=== PATIENT | male | born 1950 | race Caucasian/White ===

== ENCOUNTER 2016-08-15 22:06 | Emergency (ER) ==
[2016-08-15] MEDS ORDERED: ASPIRIN CHEWABLE PO STA (22:08)
[2016-08-15] MEDS ORDERED: SODIUM CHLORIDE 1,000 ML IV STA (22:08)
[2016-08-15] MEDS ORDERED: NITROSTAT SL STA (22:08)
[2016-08-15] MEDS ORDERED: ZOFRAN 4 MG/2 ML IVP STA (22:09)
[2016-08-15] MEDS ORDERED: MORPHINE 2 MG/ML SYRINGE IVP STA (22:09)
--- NOTE | 2016-08-15 22:14 | ED.PDOC ---
General ED Provider: Dr. MIMA RINCON-ER Chief Complaint: Chest Pain Stated Complaint: my chest has been hurting Time Seen by Physician: 22:12 Mode of Arrival: Walk-In Information Source: Patient, Family Primary Care Provider: MIMA RINCON Nursing and Triage Documentation Reviewed and Agree: Yes Cardiovascular Complaint Exam - Chest Pain Complaint/Exam Onset: Gradual Duration: 2 hrs Symptoms Are: Still present Initial Severity: Mild Current Severity: Moderate Location: Reports: Diffuse, Midsternal Pain Radiates: Reports: Back Character: Reports: Dull, Aching Aggravating: Reports: None Alleviating: Reports: Nitro Associated Signs and Symptoms: Reports: Diaphoresis, Nausea. Denies: Vomiting, Fever, Palpitations, Cough, Hemoptysis, Back pain, Abdominal pain, Dizziness, Short of air, Calf pain, Calf swelling History of Healthcare-Acquired Pneumonia: Reports: No TAD Risk Factors: Reports: None Pulmonary Embolism Risk Factors: Reports: None Prior Care for this Complaint: No Recent Stress Test: No Recent Echo/LV Function: No JVD Present: No Subcutaneous Emphysema Present: No Diminshed Breath Sounds: No Reproducible Chest Wall Pain: No Bilateral Pulses Present: Yes Unequal Pulses Noted: No Quality Indicators For Acute MS or Cardiac Chest Pain: EKG in 10min. Review of Systems - Review Of Systems Constitutional: Reports: No symptoms Eyes: Reports: No symptoms Ears, Nose, Mouth, Throat: Reports: No symptoms Respiratory: Reports: Short of air Cardiac: Reports: Chest pain GI: Reports: No symptoms : Reports: No symptoms Musculoskeletal: Reports: No symptoms Skin: Reports: No symptoms Neurological: Reports: No symptoms Endocrine: Reports: No symptoms Hematologic/Lymphatic: Reports: No symptoms All Other Systems: Reviewed and Negative Past Medical History - Past Medical History Endocrine: Reports: DM 2 Cardiovascular: Reports: CAD, MS, A-Fib Respiratory: Reports: None Hematological: Reports: None Gastrointestinal: Reports: None Genitourinary: Reports: None Neuro/Psych: Reports: None Musculoskeletal: Reports: None Cancer: Reports: None - Surgical History General Surgical History: Reports: Unknown - Family History Family History: Reports: Unknown - Social History Lives: With family Physical Exam - Physical Exam Appearance: Well-appearing, No pain distress, Well-nourished Pain Distress: Moderate Eyes: PAMELA, EOMI, Conjunctiva clear ENT: Ears normal, Nose normal, Oropharynx normal Neck: Supple Respiratory: Airway patent, Breath sounds clear, Breath sounds equal, Respirations nonlabored Cardiovascular: RRR, Pulses normal, No rub, No murmur GI/: Soft, Nontender, No masses, Bowel sounds normal, No Organomegaly Musculoskeletal: Normal strength, ROM intact, No edema, No calf tenderness Skin: Warm, Dry, Normal color Neurological: Sensation intact Psychiatric: Affect appropriate, Mood appropriate Interpretation - Radiology Interpretation Radiology Interpretation By: ED Physician Radiology Results: Negative Exam Interpreted: Portable CXR - EKG Interpretation Time of EKG #1: 22:25 Rate: Ever Rhythm: Sinus Ectopy: None [place]: NL ST Segment: Normal Re-Evaluation - Re-Evaluation Time of Re-Evaluation: 22:25 Status: Improved Vital Signs Stable: Yes Pain Level: 2 Appearance: NAD Lungs: Clear Skin: Warm and Dry Neuro: Alert and Oriented X3 CV: RRR Physician Notification - Case Discussed Physician Notified: dr reeves--[facility] [place] [facility] Time of Notification: 22:25 Critical Care Note - Critical Care Note Total Time (mins): 10 Course - Course Hematology/Chemistry: 08/15/16 22:15 Orders, Labs, Meds: Lab Review 08/15/16 22:15 WBC 15.41 H RBC 4.93 Hgb 15.0 Hct 44.6 MCV 90.5 MCH 30.4 MCHC 33.6 RDW Coeff of Hattie 14.6 Plt Count 249 Immature Gran % (Auto) 1.0 Neut % (Auto) 79.1 Lymph % (Auto) 10.0 [place] % (Auto) 7.1 Eos % (Auto) 2.3 Baso % (Auto) 0.5 Immature Gran # (Auto) 0.2 Neut # 12.2 H Lymph # 1.5 [place] # 1.1 Eos # 0.4 Baso # 0.1 ESR Pending Orders Category Date Time Status EKG-(ED ONLY) Stat CARDIO 08/15/16 22:07 Completed Setter Helper [ED SHIPS EQUIPMENT ENGINEER APPLIED] .ONCE EMERGENCY 08/15/16 22:08 Active IV [ED IV/MEDIPORT/POWERPORT] .ONCE EMERGENCY 08/15/16 22:08 Active OXYGEN [ED APPLY O2] .ONCE EMERGENCY 08/15/16 22:09 Active AMYLASE Stat LAB 08/15/16 22:15 Received CBC W/ AUTO DIFF Stat LAB 08/15/16 22:15 Results COMPREHENSIVE METABOLIC PANEL Stat LAB 08/15/16 22:15 Received CREATINE KINASE Stat LAB 08/15/16 22:15 Received D-DIMER Stat LAB 08/15/16 22:15 Received ESR Stat LAB 08/15/16 22:15 Results LIPASE Stat LAB 08/15/16 22:15 Received TROPONIN I Stat LAB 08/15/16 22:15 Received 0.9 % Sodium Chloride [Saline Flush] MEDS 08/15/16 22:08 Ordered 1 syr IVF PRN PRN Aspirin [Aspirin Chewable] MEDS 08/15/16 22:08 Discontinued 324 mg PO ONCE STA Morphine Sulfate [Morphine 2 mg/ml Syringe] MEDS 08/15/16 22:09 Discontinued 2 mg IVP ONCE STA Nitroglycerin [Nitrostat] MEDS 08/15/16 22:08 Discontinued 0.4 mg SL ONCE STA Ondansetron HCl/Pf [Zofran 4 mg/2 ml] MEDS 08/15/16 22:09 Discontinued 4 mg IVP ONCE STA Sodium Chloride 0.9% [Sodium Chloride] 1,000 ml MEDS 08/15/16 22:08 Active IV 100 mls/hr CXR [CHEST, 1V AP ONLY] Stat RADS 08/15/16 22:07 Taken Medications Generic Name Dose Route Start Last Admin Trade Name Freq PRN Reason Stop Dose Admin Sodium Chloride 1,000 mls @ 100 mls/hr 08/15/16 22:08 Sodium Chloride IV 08/16/16 08:07 .Q10H STA Sodium Chloride 1 syr 08/15/16 22:08 Saline Flush IVF PRN PRN To flush IV Discontinued Medications Generic Name Dose Route Start Last Admin Trade Name Freq PRN Reason Stop Dose Admin Aspirin 324 mg 08/15/16 22:08 Aspirin Chewable PO 08/15/16 22:09 ONCE STA Morphine Sulfate 2 mg 08/15/16 22:09 Morphine 2 Mg/Ml Syringe IVP 08/15/16 22:10 ONCE STA Nitroglycerin 0.4 mg 08/15/16 22:08 Nitrostat SL 08/15/16 22:09 ONCE STA Ondansetron HCl 4 mg 08/15/16 22:09 Zofran 4 Mg/2 Ml IVP 08/15/16 22:10 ONCE STA Vital Signs: Temp Pulse Resp BP Pulse Ox 08/15/16 22:08 98.1 F 61 20 154/81 H 95 ISIDRA Risk Score ISIDRA Risk Score: Risk Score Odds of by 30D 0 0.1 (0.1-0.2) 1 0.3 (0.2-0.3) 2 0.4 (0.3-0.5) 3 0.7 (0.6-0.9) 4 1.2 (1.0-1.5) 5 2.2 (1.9-2.6) 6 3.0 (2.5-3.6) 7 4.8 (3.8-6.1) Departure - Departure Time of Disposition: 22:25 Disposition: TSF SHORT-TRM HOSP Discharge Problem: Chest pain Instructions: Angina (ED) Condition: Good Pt referred to PMD for follow-up: Yes Allergies/Adverse Reactions: Allergies levofloxacin [From Levaquin] Allergy (Unverified 12/21/15 12:02) codien Allergy (Uncoded 12/21/15 12:02) Home Medications: Ambulatory Orders Amoxicillin 875 mg PO BID 5 Days 12/21/15 Aspirin/Caffeine [Mandi Aspirin Powder Pouches] 1 each PO DAILY 12/21/15 Atrovastatin 10 DAILY 12/21/15 Carvedilol 25 mg PO 2 daily 12/21/15 Digoxin 0.25 mg PO DAILY 12/21/15 Fluticasone Propionate [Flonase Allergy Relief] 9.9 ml NS 2 x daily 12/21/15 Hydralazine HCl 10 mg PO 2, 3x daily 12/21/15 Lisinopril 20 mg PO 2 daily 12/21/15 Metformin HCl 1,000 mg PO 2 daily 12/21/15 [place] 600 5 pills daily 12/21/15 One A Day Vitamin DAILY 12/21/15 Oxycodone HCl/Acetaminophen [Oxycodon-Acetaminophen 2.5-325] 1 each PO 3 daily PRN 12/21/15 Transfer Form Completed: Yes Disposition Discussed With: Patient, Family
[2016-08-15 22:22] LABS: BASOPHILS # (AUTO) 0.1 K/uL (0-0.2); BASOPHILS % (AUTO) 0.5 % (0.0-3.0); EOSINOPHILS # (AUTO) 0.4 K/ul (0.0-0.7); EOSINOPHILS % (AUTO) 2.3 % (0.0-7.0); HEMATOCRIT 44.6 % (42.0-52.0); LYMPHOCYTES # (AUTO) 1.5 K/uL (0.60-3.4); MEAN CORPUSCULAR HEMOGLOBIN 30.4 pg (27.0-31.0); MEAN CORPUSCULAR HGB CONC 33.6 (31.8-35.4); MEAN CORPUSCULAR VOLUME 90.5 fl (80.0-94.0); MONOCYTES # (AUTO) 1.1 K/uL (0.4-2.0); MONOCYTES % (AUTO) 7.1 (0-10); NEUTROPHILS # (AUTO) 12.2 K/ul (2.0-6.9); NEUTROPHILS % (AUTO) 79.1; PLATELET COUNT 249 10^3/uL (140-440); RED BLOOD COUNT 4.93 10^6/ul (4.70-6.10); WHITE BLOOD COUNT 15.41 K/ul (4.2-10.2)
[2016-08-15 22:24] VITALS: BP 154/81; TEMP 98.1; BMI 30.2
[2016-08-15 23:00] LABS: ALBUMIN 3.6 g/dL (3.4-5.0); ALBUMIN/GLOBULIN RATIO 0.92; ANION GAP 17.3; BILIRUBIN,TOTAL 0.59 mg/dL (0.00-1.20); BUN/CREATININE RATIO 11.96; CALCIUM 9.9 mg/dL (8.2-10.2); CREATININE 1.17 mg/dL (0.60-1.10); POTASSIUM 4.3 mmol/L (3.5-5.1); TOTAL PROTEIN 7.5 g/dL (5.8-8.1); TROPONIN I 0.032 ng/ml (0.0000-0.4000)
[2016-08-15 23:02] LABS: CREATINE KINASE MB 1.4 ng/ml (0.0-3.6)
[2016-08-15 23:04] LABS: ERYTHROCYTE SEDIMENTATION RATE 26 mm/hr (0-15); ESR INTERNAL QC INTERNAL QC VALID
--- NOTE | 2016-08-16 07:49 | DI ---
EXAM: CHEST FRONTAL VIEW HISTORY: Chest pain. COMPARISON: None FINDINGS: Heart size and mediastinum within normal limits. Mild ectasia of the aorta. No acute i nfiltrates are seen. There is no consolidation, visible pleural fluid or pneumothorax. Bones reveal no acute fracture. IMPRESSION: No acute cardiopulmonary process.
== END 2016-08-15 22:55 | disposition short-term general hospital (02) ==
LOC: ED 22:06
DX: R07.9 Chest pain, unspecified (principal); R06.02 Shortness of breath; I25.10 Atherosclerotic heart disease of native coronary artery without angina pectoris; I25.2 Old myocardial infarction; E11.9 Type 2 diabetes mellitus without complications; Z79.899 Other long term (current) drug therapy
CPT/HCPCS: 36415; 80053; 82150; 82550; 82553; 83690; 84484; 85025; 85379; 85651; 93005; 93010; 96360; 96361; 96374; 96375; 99285

== ENCOUNTER 2016-08-15 22:53 | Outpatient (CLI) ==
[2016-08-15 22:24] VITALS: BMI 30.2
== END 2016-08-15 22:54 ==
LOC: AMBL 22:53
PROVIDERS: ATTEND Family Medicine
DX: R07.9 Chest pain, unspecified (principal); R00.1 Bradycardia, unspecified

== ENCOUNTER 2017-10-16 10:48 | Outpatient (RCR) ==
[2017-10-16 11:29] VITALS: TEMP 98.1; BMI 32.4
[2017-10-21 11:51] VITALS: BP 130/58
== END 2017-10-21 23:59 ==
LOC: CAR.REHAB 10:48
PROVIDERS: ATTEND Thoracic Surgery (Cardiothoracic Vascular Surgery)
DX: I25.810 Atherosclerosis of coronary artery bypass graft(s) without angina pectoris (principal); I48.0 Paroxysmal atrial fibrillation
CPT/HCPCS: 93798

== ENCOUNTER 2017-10-22 07:33 | Outpatient (RCR) ==
[2017-11-20 11:49] VITALS: BP 138/56
== END 2017-11-21 23:59 ==
LOC: CAR.REHAB 07:33
PROVIDERS: ATTEND Thoracic Surgery (Cardiothoracic Vascular Surgery)
DX: I25.10 Atherosclerotic heart disease of native coronary artery without angina pectoris (principal); I48.0 Paroxysmal atrial fibrillation
CPT/HCPCS: 93798

== ENCOUNTER 2017-11-22 07:32 | Outpatient (RCR) ==
[2017-12-20 12:03] VITALS: BP 128/56
== END 2017-12-21 23:59 ==
LOC: CAR.REHAB 07:32
PROVIDERS: ATTEND Internal Medicine
DX: I25.10 Atherosclerotic heart disease of native coronary artery without angina pectoris (principal); I48.0 Paroxysmal atrial fibrillation
CPT/HCPCS: 93798

== ENCOUNTER 2017-12-23 07:14 | Outpatient (RCR) ==
[2018-01-20 12:00] VITALS: BP 130/58
== END 2018-01-20 14:02 | disposition home or self-care (01) ==
LOC: CAR.REHAB 07:14
PROVIDERS: ATTEND Internal Medicine
DX: I25.10 Atherosclerotic heart disease of native coronary artery without angina pectoris (principal); I48.0 Paroxysmal atrial fibrillation; Z95.1 Presence of aortocoronary bypass graft
CPT/HCPCS: 93798

== ENCOUNTER 2018-02-03 08:55 | Outpatient (CLI) | END 2018-02-03 08:56 | disposition home or self-care (01) | LOC: LAB 08:55 | PROVIDERS: ATTEND Family Medicine | DX: D69.6 Thrombocytopenia, unspecified (principal) | CPT/HCPCS: 36415; 85025 ==

== ENCOUNTER 2018-04-13 06:40 | Emergency (ER) | payer OTHER ==
[2018-04-13 06:47] VITALS: BP 109/72; TEMP 98.2; BMI 34.7
--- NOTE | 2018-04-13 07:40 | ED.PDOC ---
General ED Provider: Dr. MIMA MARTIN Chief Complaint: Foot Pain/Injury Stated Complaint: Pain in Rt foot-1st Toe. Onset ; Believes may have stepped on a stone. Pain progressively worsened and has become inflamed, reddened and swollen extending along distal inner foot. Time Seen by Physician: 07:18 Mode of Arrival: Walk-In Information Source: Patient Exam Limitations: No limitations Primary Care Provider: MIMA RINCON Referred to ED by: PCP Nursing and Triage Documentation Reviewed and Agree: Yes Does patient meet sepsis criteria?: No System Inflammatory Response Syndrome: Not Applicable Sepsis Protocol: For patient's 13 years and over: Temp is 96.8 and below OR 101 and greater Pulse >90 BPM Resp >20/minute Acutely Altered Mental Status Are patient's symptoms suggestive of a new infection, such as: -Pneumonia -Skin, Soft Tissue -Endocarditis -UTI -Bone, Joint Infection -Implantable Device -Acute Abdominal Infection -Wound Infection -Meningitis -Blood Stream Catheter Infection -Unknown Musculoskeletal Complaint Exam - Ankle/Foot Complaint/Exam Location of Injury: Reports: Left, Toe #1 Mechanism of Injury: Reports: No known trauma (not sure if stepped on a stone) Onset/Duration: 3-4 days Symptoms Are: Reports: Still present Onset of Pain: Reports: Prior to arrival Initial Severity: Moderate Current Severity: Moderate Location: Reports: Discrete Character: Reports: Aching, Throbbing Alleviating: Reports: None Aggravating: Reports: Movement, Weight bearing Able to Bear Weight: Yes Associated Signs and Symptoms: Reports: Swelling, Redness Related History: Denies: Similar episode Gout Risk Factors: Reports: >40 years old, Male, Diabetes, HTN, Renal Disease, Hyperlipidemia, Obesity Related Surgical History: Reports: None Lower Extremity Findings: Present: Swelling, Erythema, Warmth, Limited range of motion (RT 1st MTP joint) Tenderness: Present: Metatarsals Limited Range of Motion: Present: Dorsiflexion, Plantarflexion Differential Diagnosis: Gout, Strain Review of Systems - Review Of Systems Constitutional: Reports: No symptoms Eyes: Reports: No symptoms Ears, Nose, Mouth, Throat: Reports: No symptoms Respiratory: Reports: No symptoms Cardiac: Reports: No symptoms GI: Reports: No symptoms : Reports: No symptoms Musculoskeletal: Reports: No symptoms, Joint pain, Joint swelling Skin: Reports: No symptoms Neurological: Reports: No symptoms Endocrine: Reports: No symptoms Hematologic/Lymphatic: Reports: No symptoms All Other Systems: Reviewed and Negative Past Medical History - Past Medical History Previously Healthy: No Endocrine: Reports: DM 2 Cardiovascular: Reports: CAD, CO, A-Fib, Other (CABG) Respiratory: Reports: None Hematological: Reports: None Gastrointestinal: Reports: None Genitourinary: Reports: None Neuro/Psych: Reports: None Musculoskeletal: Reports: None Cancer: Reports: None - Surgical History General Surgical History: Reports: Unknown - Family History Family History: Reports: Unknown - Social History Smoking Status: Never smoker Hx Substance Use: No Alcohol Screening: None - Immunizations Tetanus Shot up to Date: Yes Physical Exam - Physical Exam Appearance: Well-appearing, No pain distress, Well-nourished Eyes: PAMELA, EOMI, Conjunctiva clear ENT: Ears normal, Nose normal, Oropharynx normal Respiratory: Airway patent, Breath sounds clear, Breath sounds equal, Respirations nonlabored Cardiovascular: RRR, Pulses normal, No rub, No murmur GI/: Soft, Nontender, No masses, Bowel sounds normal, No Organomegaly Musculoskeletal: Normal strength, ROM intact, No edema, No calf tenderness, Limited ROM (Great toe-Rt 1st MTP joint) Skin: Warm, Dry, Normal color Neurological: Sensation intact, Motor intact, Reflexes intact, Cranial nerves intact, Alert, Oriented Psychiatric: Affect appropriate, Mood appropriate Interpretation - Radiology Interpretation Radiology Interpretation By: ED Physician Radiology Results: No acute changes Xray Comments: No acute changes of the 1st MTP joint of Rt foot-3 views reviewed Re-Evaluation - Re-Evaluation Time of Re-Evaluation: 08:15 Status: Unchanged Vital Signs Stable: Yes Appearance: NAD Lungs: Clear Neuro: Alert and Oriented X3 CV: RRR Additional Comments: Explained results of diagnostic findings and clinical impresssion Critical Care Note - Critical Care Note Total Time (mins): 30 Comments: 30 Course - Course Hematology/Chemistry: 04/13/18 07:40 04/13/18 07:40 Orders, Labs, Meds: Lab Review 04/13/18 04/13/18 04/13/18 07:40 07:40 07:40 WBC 10.76 H RBC 4.64 L Hgb 13.6 L Hct 40.5 L MCV 87.3 MCH 29.3 MCHC 33.6 RDW Coeff of Hattie 15.8 H Plt Count 162 Immature Gran % (Auto) 0.5 Neut % (Auto) 78.1 Lymph % (Auto) 9.1 L [place] % (Auto) 9.2 Eos % (Auto) 2.6 Baso % (Auto) 0.5 Immature Gran # (Auto) 0.1 Neut # (Auto) 8.4 H Lymph # (Auto) 1.0 [place] # (Auto) 1.0 Eos # (Auto) 0.3 Baso # (Auto) 0.1 ESR 11 Sodium 135.5 L Potassium 3.87 Chloride 98.7 Carbon Dioxide 29.8 Anion Gap 10.87 BUN 16.9 Creatinine 1.20 H Estimated GFR (MDRD) 60.00 BUN/Creatinine Ratio 14.08 Glucose 115.9 H Uric Acid 9.25 H Calcium 8.94 Total Bilirubin 0.78 AST 25.0 ALT 19.4 Alkaline Phosphatase 96.7 Total Protein 6.67 Albumin 3.92 Globulin 2.75 Albumin/Globulin Ratio 1.42 Orders Category Date Time Status CBC W/ AUTO DIFF Stat LAB 04/13/18 07:40 Completed CMP [COMPREHENSIVE METABOLIC PANEL] Stat LAB 04/13/18 07:40 Completed ESR Stat LAB 04/13/18 07:40 Completed URIC ACID Stat LAB 04/13/18 07:40 Completed Hydrocodone Bit/Acetaminophen [[place] 7.5-325] MEDS 04/13/18 07:35 Discontinued 1 tab PO ONCE STA FOOT, RIGHT 3 VIEWS Stat RADS 04/13/18 07:30 Taken Medications Discontinued Medications Generic Name Dose Route Start Last Admin Trade Name Freq PRN Reason Stop Dose Admin Hydrocodone Bitart/Acetaminophen 1 tab 04/13/18 07:35 04/13/18 08:51 [place] 7.5-325 PO 04/13/18 07:36 Not Given ONCE STA Vital Signs: Temp Pulse Resp BP Pulse Ox 04/13/18 06:42 98.2 F 73 20 109/72 93 L Departure - Departure Time of Disposition: 09:00 Disposition: HOME SELF-CARE Discharge Problem: Gout attack, Hyperuricemia, CKD (chronic kidney disease), Diabetes mellitus, Anemia Instructions: Low Purine Diet (ED), Gout (ED) Condition: Good Pt referred to PMD for follow-up: Yes IPMP verified?: No Additional Instructions: Take meds as directed Dietary changes as directed Follow up PCP in next week for additional therapy or return to ER if worsens May apply ice to foot for acute pain as needed Prescriptions: Hydrocodone/Acetaminophen [[place] 5-325 Tablet] 1 - 2 each PO Q6HR PRN #10 tablet PRN Reason: Foot Pain Allopurinol 100 mg PO TID #15 tablet Colchicine [Colcrys] 0.6 mg PO DIRECTED #6 tablet Allergies/Adverse Reactions: Allergies levofloxacin [From Levaquin] Allergy (Unverified 04/13/18 06:57) povidone-iodine [From Betadine] Adverse Reaction (Unverified 04/13/18 06:57) PT STATED AFTER HIS OPERATION HE WAS ILL AND NAUSEATED soap [From Betadine] Adverse Reaction (Unverified 04/13/18 06:57) PT STATED AFTER HIS OPERATION HE WAS ILL AND NAUSEATED codien Allergy (Uncoded 04/13/18 06:57) Home Medications: Ambulatory Orders Metformin HCl 1,000 mg PO DAILY 12/21/15 Atorvastatin Calcium [Lipitor] 40 mg PO BEDTIME 08/15/16 Cyanocobalamin (Vitamin B-12) [Cyanocobalamin Injection] 1,000 mcg IM MONTHLY Dabigatran Etexilate Mesylate [Pradaxa] 150 mg PO Q12HR 08/15/16 Multivitamin 1 cap PO DAILY 08/15/16 [place]-3/Dha/Epa/Fish Oil [[place]-3 Fish Oil] 3,000 mg PO QPM 08/15/16 Tamsulosin HCl [Flomax] 0.4 mg PO DAILY 08/15/16 Allopurinol 100 mg PO TID #15 tablet 04/13/18 Aspirin [Aspirin EC] 81 mg PO DAILY LAB 04/13/18 Bupropion HCl [Wellbutrin] 75 mg PO BID 04/13/18 Colchicine [Colcrys] 0.6 mg PO DIRECTED #6 tablet 04/13/18 Dabigatran Etexilate Mesylate [Pradaxa] 150 mg PO BID 04/13/18 Furosemide [Lasix] 20 mg PO BID 04/13/18 Hydrocodone/Acetaminophen [[place] 5-325 Tablet] 1 - 2 each PO Q6HR PRN #10 tablet 04/13/18 Losartan Potassium [Cozaar] 25 mg PO DAILY 04/13/18 Metoprolol Succinate [Toprol Xl] 12.5 mg PO DAILY 04/13/18 Pregabalin [Lyrica] 200 mg PO BID 04/13/18 Sitagliptin Phosphate [Januvia] 50 mg PO DAILY 04/13/18 Disposition Discussed With: Patient
[2018-04-13] MEDS: NORCO 7.5-325 PO STA (08:51)
--- NOTE | 2018-04-13 11:32 | DI ---
EXAM: Right foot three view HISTORY: Pain great toe COMPARISON: None FINDINGS: No fracture dislocation. Mild osteoarthritis first MTP joint with small osteophyte format ion. No focal soft tissue abnormality. IMPERSSION: Mild osteoarthritis first MTP joint.
== END 2018-04-13 09:22 | disposition home or self-care (01) ==
LOC: ED 06:40
DX: M10.9 Gout, unspecified (principal); E79.0 Hyperuricemia without signs of inflammatory arthritis and tophaceous disease; N18.9 Chronic kidney disease, unspecified; D63.1 Anemia in chronic kidney disease; E11.9 Type 2 diabetes mellitus without complications; Z79.899 Other long term (current) drug therapy; I25.2 Old myocardial infarction; I25.810 Atherosclerosis of coronary artery bypass graft(s) without angina pectoris
CPT/HCPCS: 36415; 80053; 84550; 85025; 85651; 99283